=== PATIENT | female | born 1995 | race Caucasian/White ===

== ENCOUNTER 2021-11-19 11:56 | Emergency (ER) | payer MEDICAID ==
[~2021-11-19] VITALS: Ht 162.6 cm; Wt 81.0 kg
[2021-11-19 12:09] VITALS: BP 98/71
[2021-11-19] MEDS ORDERED: ALBUTEROL (0.083%) 2.5MG/3ML NEB HHN STA (13:46)
[2021-11-19] MEDS ORDERED: ACETAMINOPHEN 325MG TABLET PO PRN (14:00)
[2021-11-19 14:07] LABS: CLARITY URINE CLOUDY (CLEAR); COLOR URINE YELLOW (YELLOW); KETONES URINE TRACE (NEGATIVE); LEUKOCYTE ESTERASE URINE TRACE (NEGATIVE); NITRITE URINE NEGATIVE (NEGATIVE); OCCULT BLOOD URINE 1+ (NEGATIVE); PH URINE 6.5 (4.5-8.0); PROTEIN URINE TRACE (NEGATIVE); SPECIFIC GRAVITY URINE 1.031 (1.005-1.030)
[2021-11-19 14:12] LABS: BASOPHILS % 0.7 % (0.0-2.0); EOSINOPHILS % 7.4 % (0.0-5.0); HEMATOCRIT. 40.2 % (36.0-48.0); HEMOGLOBIN. 13.9 g/dL (12.0-16.0); LYMPHOCYTES % 24.3 % (20.0-50.0); MEAN CORPUSCULAR HEMOGLOBIN 29.5 pg (28.0-32.0); MEAN CORPUSCULAR VOLUME 85.8 fL (81.0-99.0); MEAN PLATELET VOLUME 7.1 fl (7.4-10.4); MONOCYTES % 8.1 % (2.0-8.0); NEUTROPHILS % 59.5 % (40.0-76.0); PLATELET 321 x1000/uL (130-400); RED BLOOD CELL COUNT 4.69 mill/uL (4.2-5.4); RED CELL DISTRIBUTION WIDTH 13.7 % (11.6-14.6)
[2021-11-19 14:14] LABS: CHLORIDE 104 mEq/L (98-107)
[2021-11-19 14:37] LABS: B-HCG QUANTITATIVE 72623 mIU/mL (<3)
[2021-11-19] MEDS ORDERED: NITR-87 MT (15:39)
[2021-11-19] MEDS ORDERED: TOPUD MT (15:39)
[2021-11-19] MEDS ORDERED: ALBU6.7H9 INH (15:41)
== END 2021-11-19 16:34 | disposition home or self-care (01) ==
LOC: ER 11:56
DX: O26.891 Other specified pregnancy related conditions, first trimester (principal); Z3A.08 8 weeks gestation of pregnancy; O23.31 Infections of other parts of urinary tract in pregnancy, first trimester; J45.901 Unspecified asthma with (acute) exacerbation; Z88.0 Allergy status to penicillin
CPT/HCPCS: 36415; 76801; 76817; 80053; 81003; 81025; 84702; 85025; 93005; 94640; 99285; Z7610

== ENCOUNTER 2021-12-16 05:48 | Emergency (ER) | payer MEDICAID ==
[~2021-12-16] VITALS: Ht 162.6 cm; Wt 75.1 kg
[~2021-12-16 05:48] MED LIST: ALBU6.7H3 INH; NITR-87 MT; TOPUD MT
[2021-12-16 06:23] VITALS: BP 95/66
[2021-12-16] MEDS ORDERED: ALBUTEROL (0.083%) 2.5MG/3ML NEB HHN STA ×2 (06:47→08:00)
[2021-12-16] MEDS ORDERED: IPRATROPIUM BROMIDE (0.02%) 0.5MG/2.5ML NEB HHN STA ×2 (06:47→08:00)
[2021-12-16] MEDS ORDERED: PREDNISONE 20MG TABLET PO STA (08:00)
[2021-12-16] MEDS ORDERED: ACETAMINOPHEN 325MG TABLET PO ONE (08:15)
[2021-12-16] MEDS ORDERED: ALBU2.5V13 NEB (09:10)
[2021-12-16] MEDS ORDERED: P20 MT (09:10)
== END 2021-12-16 09:42 | disposition home or self-care (01) ==
LOC: ER 05:48
DX: O99.511 Diseases of the respiratory system complicating pregnancy, first trimester (principal); J45.901 Unspecified asthma with (acute) exacerbation; Z3A.13 13 weeks gestation of pregnancy
CPT/HCPCS: 81025; 94640; 99283; J7512; Z7610

== ENCOUNTER 2021-12-18 12:56 | Emergency (ER) | payer MEDICAID ==
[~2021-12-18] VITALS: Ht 167.6 cm; Wt 75.0 kg
[~2021-12-18 12:56] MED LIST changes: +ALBU2.5V13 NEB; +P20 MT
[2021-12-18 13:00] VITALS: BP 126/81
== END 2021-12-18 18:01 | disposition left against medical advice (07) ==
LOC: ER 12:56
DX: Z53.21 Procedure and treatment not carried out due to patient leaving prior to being seen by health care provider (principal); O26.891 Other specified pregnancy related conditions, first trimester; R07.9 Chest pain, unspecified; R00.0 Tachycardia, unspecified; Z3A.13 13 weeks gestation of pregnancy
CPT/HCPCS: 93005

== ENCOUNTER 2022-04-22 16:45 | Observation (INO) | payer MEDICAID ==
[~2022-04-22] VITALS: Ht 162.6 cm; Wt 72.6 kg
[2022-04-22] MEDS ORDERED: PNV1TABL50 MT (20:22)
[2022-04-22] MEDS ORDERED: FERR325T6 MT (20:22)
== END 2022-04-22 20:55 | disposition home or self-care (01) ==
LOC: 8 EST LDRP 16:45
PROVIDERS: ADMIT Obstetrics & Gynecology; ATTEND Obstetrics & Gynecology
DX: O26.893 Other specified pregnancy related conditions, third trimester (principal); R10.9 Unspecified abdominal pain; O62.9 Abnormality of forces of labor, unspecified; Z3A.31 31 weeks gestation of pregnancy
CPT/HCPCS: 59025; 76805; 76818; G0378; 99281; G0379

== ENCOUNTER 2022-05-02 11:45 | Observation (INO) | payer MEDICAID ==
[~2022-05-02] VITALS: Ht 162.6 cm; Wt 75.7 kg
[~2022-05-02 11:45] MED LIST changes: +FERR325T6 MT; +PNV1TABL50 MT
[2022-05-02 13:29] LABS: CLARITY URINE CLOUDY (CLEAR); COLOR URINE YELLOW (YELLOW); KETONES URINE NEGATIVE (NEGATIVE); LEUKOCYTE ESTERASE URINE 2+ (NEGATIVE); NITRITE URINE NEGATIVE (NEGATIVE); OCCULT BLOOD URINE TRACE (NEGATIVE); PH URINE 6.5 (4.5-8.0); PROTEIN URINE NEGATIVE (NEGATIVE); SPECIFIC GRAVITY URINE 1.018 (1.005-1.030)
== END 2022-05-02 14:45 | disposition home or self-care (01) ==
LOC: 8 EST A/PP 11:45
PROVIDERS: ADMIT Obstetrics & Gynecology; ATTEND Obstetrics & Gynecology
DX: O26.893 Other specified pregnancy related conditions, third trimester (principal); R10.9 Unspecified abdominal pain; O62.9 Abnormality of forces of labor, unspecified; Z3A.32 32 weeks gestation of pregnancy; V89.2XXA Person injured in unspecified motor-vehicle accident, traffic, initial encounter; Y93.89 Activity, other specified; Y92.89 Other specified places as the place of occurrence of the external cause; Y99.8 Other external cause status
CPT/HCPCS: 59025; 81003; G0378; 99281; G0379

== ENCOUNTER 2022-06-05 06:01 | Observation (INO) | payer MEDICAID ==
[~2022-06-05] VITALS: Ht 160 cm; Wt 76.2 kg
[2022-06-05] MEDS ORDERED: PREN-176 PO (06:47)
[2022-06-05] MEDS ORDERED: ALBU90AE2 (06:47)
[2022-06-05] MEDS ORDERED: LACTATED RINGERS 1,000 ML IV NR (07:30)
[2022-06-05 07:38] LABS: CLARITY URINE CLEAR (CLEAR); COLOR URINE YELLOW (YELLOW); KETONES URINE TRACE (NEGATIVE); LEUKOCYTE ESTERASE URINE 2+ (NEGATIVE); NITRITE URINE NEGATIVE (NEGATIVE); OCCULT BLOOD URINE NEGATIVE (NEGATIVE); PROTEIN URINE TRACE (NEGATIVE)
[2022-06-05] MEDS ORDERED: LACTATED RINGERS 1,000 ML IV SCH (08:00)
== END 2022-06-05 09:00 | disposition home or self-care (01) ==
LOC: 8 EST LDRP 06:01
PROVIDERS: ADMIT Obstetrics & Gynecology; ATTEND Obstetrics & Gynecology
DX: O62.9 Abnormality of forces of labor, unspecified (principal); O99.891 Other specified diseases and conditions complicating pregnancy; M54.9 Dorsalgia, unspecified; O26.893 Other specified pregnancy related conditions, third trimester; R10.9 Unspecified abdominal pain; Z3A.37 37 weeks gestation of pregnancy
CPT/HCPCS: 59025; 76805; 76818; 81003; 96360; 99281; G0378

== ENCOUNTER 2022-06-13 11:47 | Observation (INO) | payer MEDICAID ==
[~2022-06-13] VITALS: Ht 157.5 cm; Wt 75.7 kg
== END 2022-06-13 15:28 | disposition home or self-care (01) ==
LOC: 8 EST LDRP 11:47
PROVIDERS: ADMIT Obstetrics & Gynecology; ATTEND Obstetrics & Gynecology
DX: O26.893 Other specified pregnancy related conditions, third trimester (principal); M25.562 Pain in left knee; Z3A.38 38 weeks gestation of pregnancy
CPT/HCPCS: 59025; 93971; G0378; 99281; G0379

== ENCOUNTER 2022-06-17 12:04 | Observation (INO) | payer MEDICAID | END 2022-06-17 14:10 | disposition home or self-care (01) | LOC: 8 EST LDRP 12:04 | PROVIDERS: ADMIT Obstetrics & Gynecology; ATTEND Obstetrics & Gynecology | DX: O99.891 Other specified diseases and conditions complicating pregnancy (principal); M54.9 Dorsalgia, unspecified; R10.30 Lower abdominal pain, unspecified; O62.9 Abnormality of forces of labor, unspecified; Z3A.38 38 weeks gestation of pregnancy | CPT/HCPCS: 59025; G0378; G0379 ==

== ENCOUNTER 2022-06-20 00:02 | Inpatient (IN) | payer MEDICAID ==
[~2022-06-20] VITALS: Ht 162.6 cm; Wt 84.8 kg
[2022-06-20] MEDS ORDERED: PNV1TABL76 PO (00:49)
[2022-06-20] MEDS ORDERED: ALBU6.7H3 INH (00:49)
[2022-06-20] MEDS ORDERED: METHYLERGONOVINE MALEATE 0.2 MG/ML IM PRN ×2 (02:30→03:15)
[2022-06-20] MEDS ORDERED: CARBOPROST TROMETHAMINE 250 MCG/ML AMPUL IM PRN ×2 (02:30→03:15)
[2022-06-20] MEDS ORDERED: MISOPROSTOL 100MCG TABLET VG SCH ×2 (02:30→03:15)
[2022-06-20] MEDS ORDERED: NALOXONE HCL 0.4 MG/ML 1ML VIAL IM PRN ×2 (02:30→03:15)
[2022-06-20] MEDS ORDERED: LIDOCAINE HCL 1% 20ML VIAL (Pyxis) INJ INFIL SCH ×2 (02:30→03:15)
[2022-06-20] MEDS ORDERED: BUTORPHANOL TARTRATE 2 MG/ML VIAL IV PRN ×2 (02:30→03:15)
[2022-06-20] MEDS ORDERED: OXYTOCIN 30 UNITS/500ML NS PMX 500 ML IV SCH (02:30)
[2022-06-20] MEDS ORDERED: MISOPROSTOL 100MCG TABLET VG PRN ×2 (02:30→03:15)
[2022-06-20 02:52] LABS: BASOPHILS % 0.4 % (0.0-2.0); EOSINOPHILS % 2.1 % (0.0-5.0); HEMATOCRIT. 31.7 % (36.0-48.0); HEMOGLOBIN. 10.3 g/dL (12.0-16.0); LYMPHOCYTES % 26.2 % (20.0-50.0); MEAN PLATELET VOLUME 7.3 fl (7.4-10.4); MONOCYTES % 7.6 % (2.0-8.0); NEUTROPHILS % 63.7 % (40.0-76.0); PLATELET 371 x1000/uL (130-400); RED BLOOD CELL COUNT 4.28 mill/uL (4.2-5.4); RED CELL DISTRIBUTION WIDTH 15.7 % (11.6-14.6)
[2022-06-20 02:53] LABS: CLARITY URINE CLOUDY (CLEAR); COLOR URINE YELLOW (YELLOW); KETONES URINE 3+ (NEGATIVE); LEUKOCYTE ESTERASE URINE 1+ (NEGATIVE); NITRITE URINE NEGATIVE (NEGATIVE); OCCULT BLOOD URINE NEGATIVE (NEGATIVE); PH URINE 6.5 (4.5-8.0); PROTEIN URINE TRACE (NEGATIVE); SPECIFIC GRAVITY URINE 1.027 (1.005-1.030)
[2022-06-20 03:06] LABS: INR 0.9; PARTIAL THROMBOPLASTIN TIME 24.3 sec (23.4-31.0); PROTHROMBIN TIME 10.1 sec (9.6-11.0)
[2022-06-20] MEDS: LACTATED RINGERS 1,000 ML IV SCH ×4 (03:08→21:54)
[2022-06-20 03:45] LABS: *AMPHETAMINES SCREEN URINE NEGATIVE (NEGATIVE); *BARBITURATES SCREEN URINE NEGATIVE (NEGATIVE); *BENZODIAZEPINES SCREEN URINE NEGATIVE (NEGATIVE); *COCAINE SCREEN URINE NEGATIVE (NEGATIVE); CANNABINOID URINE SCREEN NEGATIVE (NEGATIVE); METHADONE URINE SCREEN NEGATIVE (NEGATIVE); OPIATES URINE SCREEN NEGATIVE (NEGATIVE); PHENCYCLIDINE URINE SCREEN NEGATIVE (NEGATIVE)
[2022-06-20 07:13] LABS: HEPATITIS B SURFACE ANTIGEN NEGATIVE
[2022-06-20] MEDS ORDERED: ROPIVACAINE HCL/PF EPIDURAL 200 ML EPI SCH (14:30)
[2022-06-20] MEDS: OXYTOCIN 30 UNITS/500ML NS PMX 500 ML IV SCH (15:54)
[2022-06-20] MEDS: ALBUTEROL (0.083%) 2.5MG/3ML NEB HHN SCH (21:00)
[2022-06-20] MEDS ORDERED: ALBUTEROL (0.083%) 2.5MG/3ML NEB ONE (21:01)
[2022-06-20] MEDS ORDERED: ALBUTEROL 6.7GM HFA INHALER ORI PRN (22:15)
[2022-06-20] MEDS ORDERED: ACETAMINOPHEN 500MG TABLET PO SCH (22:30)
[2022-06-21] MEDS ORDERED: IBUPROFEN 400MG TABLET PO PRN (00:45)
[2022-06-21] MEDS: IBUPROFEN 800MG TABLET PO PRN ×3 (01:08→16:12)
[2022-06-21] MEDS: OXYTOCIN 30 UNITS/500ML NS PMX 500 ML IV SCH (01:08)
[2022-06-21 02:25] VITALS: BP 95/60
[2022-06-21 04:00] VITALS: BP 98/62
[2022-06-21] MEDS: PRENATAL VIT/FE FUMARATE/FA TABLET PO SCH (08:26)
[2022-06-21 08:30] VITALS: BP 99/61
[2022-06-21 16:00] VITALS: BP 103/65
[2022-06-21 20:00] VITALS: BP 94/64
[2022-06-21] MEDS ORDERED: CLINDAMYCIN IN 0.9 % SOD CHLOR 50 ML IV ONE (21:31)
[2022-06-22 04:00] VITALS: BP 98/55
[2022-06-22] MEDS: LACTATED RINGERS 1,000 ML IV SCH ×2 (05:37→12:03)
[2022-06-22] MEDS ORDERED: FENTANYL CITRATE/PF 50MCG/ML 2ML VIAL ONE ×2 (06:42→09:30)
[2022-06-22 07:30] VITALS: BP 101/67
[2022-06-22] MEDS ORDERED: FERROUS SULFATE 325MG TABLET PO SCH (07:30)
[2022-06-22 08:26] LABS: BASOPHILS % 0.5 % (0.0-2.0); EOSINOPHILS % 2.3 % (0.0-5.0); HEMATOCRIT. 28.1 % (36.0-48.0); HEMOGLOBIN. 9.1 g/dL (12.0-16.0); LYMPHOCYTES % 30.5 % (20.0-50.0); MEAN CORPUSCULAR HEMOGLOBIN 23.8 pg (28.0-32.0); MEAN CORPUSCULAR VOLUME 73.8 fL (81.0-99.0); MEAN PLATELET VOLUME 7.2 fl (7.4-10.4); NEUTROPHILS % 60.7 % (40.0-76.0); PLATELET 329 x1000/uL (130-400); RED BLOOD CELL COUNT 3.81 mill/uL (4.2-5.4); RED CELL DISTRIBUTION WIDTH 15.5 % (11.6-14.6)
[2022-06-22] MEDS ORDERED: DEXAMETHASONE 4MG/ML 1ML VIAL ONE (09:38)
[2022-06-22] MEDS ORDERED: ONDANSETRON HCL 4MG/2ML INJ ONE (09:38)
[2022-06-22] MEDS ORDERED: PROPOFOL 200MG/20ML VIAL IV ONE (09:39)
[2022-06-22] MEDS ORDERED: MIDAZOLAM HCL 2 MG/2 ML VIAL ONE (09:46)
[2022-06-22] MEDS ORDERED: BUPIVACAINE HCL/PF 0.25% (2.5MG/ML) 10ML ONE ×2 (09:59→10:01)
[2022-06-22] MEDS ORDERED: FENTANYL CITRATE/PF 50MCG/ML 2ML VIAL IV PRN (10:15)
[2022-06-22] MEDS: ALBUTEROL (0.083%) 2.5MG/3ML NEB HHN SCH (11:52)
[2022-06-22] MEDS: PRENATAL VIT/FE FUMARATE/FA TABLET PO SCH (13:08)
[2022-06-22] MEDS: IBUPROFEN 800MG TABLET PO PRN (13:08)
== END 2022-06-22 17:00 | disposition home or self-care (01) | DRG 541 ==
LOC: OBSVTOIN 00:02 → 8 EST LDRP 00:02 → 8EST 06-21 02:15
PROVIDERS: ADMIT Obstetrics & Gynecology; ATTEND Obstetrics & Gynecology
PROC: 10E0XZZ Delivery of Products of Conception, External Approach (ICD-10-PCS; principal; 2022-06-21)
PROC: 3E0R3BZ Introduction of Anesthetic Agent into Spinal Canal, Percutaneous Approach (ICD-10-PCS; 2022-06-21)
PROC: 00HU33Z Insertion of Infusion Device into Spinal Canal, Percutaneous Approach (ICD-10-PCS; 2022-06-21)
PROC: 0UB70ZZ Excision of Bilateral Fallopian Tubes, Open Approach (ICD-10-PCS; 2022-06-22)
DX: O13.4 Gestational [pregnancy-induced] hypertension without significant proteinuria, complicating childbirth (principal); Z37.0 Single live birth; J45.909 Unspecified asthma, uncomplicated; Z20.822 Contact with and (suspected) exposure to COVID-19; Z30.2 Encounter for sterilization; Z3A.39 39 weeks gestation of pregnancy; Z83.3 Family history of diabetes mellitus; Z88.0 Allergy status to penicillin; Z64.1 Problems related to multiparity
CPT/HCPCS: 36415; 80305; 81003; 85025; 86592; 86703; 86762; 86850; 86900; 87340; 87426; 88302; 93005; 94640; 94664; G0378; J1100; J2250; J2405; J2704; J2795; J3010; J3490; J7120; J2590

== ENCOUNTER 2022-07-21 22:09 | Emergency (ER) | payer MEDICAID ==
[~2022-07-21] VITALS: Ht 167.6 cm; Wt 59.0 kg
[~2022-07-21 22:09] MED LIST changes: -ALBU2.5V13 NEB; -FERR325T6 MT; -NITR-87 MT; -P20 MT; -PNV1TABL50 MT; +PNV1TABL76 PO; -TOPUD MT
[2022-07-21 22:45] LABS: BASOPHILS % 0.8 % (0.0-2.0); HEMATOCRIT. 38.9 % (36.0-48.0); HEMOGLOBIN. 12.7 g/dL (12.0-16.0); LYMPHOCYTES % 26.8 % (20.0-50.0); MEAN CORPUSCULAR HEMOGLOBIN 23.9 pg (28.0-32.0); MEAN CORPUSCULAR VOLUME 73.3 fL (81.0-99.0); MEAN PLATELET VOLUME 7.6 fl (7.4-10.4); MONOCYTES % 7.6 % (2.0-8.0); NEUTROPHILS % 61.8 % (40.0-76.0); PLATELET 249 x1000/uL (130-400); RED BLOOD CELL COUNT 5.31 mill/uL (4.2-5.4); RED CELL DISTRIBUTION WIDTH 19.5 % (11.6-14.6)
[2022-07-21 22:53] LABS: CHLORIDE 112 mEq/L (98-107)
[2022-07-22 00:47] LABS: CLARITY URINE CLOUDY (CLEAR); COLOR URINE YELLOW (YELLOW); KETONES URINE TRACE (NEGATIVE); LEUKOCYTE ESTERASE URINE NEGATIVE (NEGATIVE); NITRITE URINE NEGATIVE (NEGATIVE); OCCULT BLOOD URINE 2+ (NEGATIVE); PROTEIN URINE TRACE (NEGATIVE); SPECIFIC GRAVITY URINE 1.025 (1.005-1.030); UROBILINOGEN URINE 0.2 E.U./dL (0.2-1.0)
[2022-07-22 02:21] VITALS: BP 107/70
[2022-07-22] MEDS ORDERED: ACETAMINOPHEN 500MG TABLET PO ONE (02:30)
[2022-07-22] MEDS ORDERED: ACET-2708 MT (05:51)
[2022-07-22] MEDS ORDERED: NITR-87 MT (05:51)
== END 2022-07-22 07:11 | disposition home or self-care (01) ==
LOC: ER 22:09
DX: R10.30 Lower abdominal pain, unspecified (principal); R82.71 Bacteriuria; R19.7 Diarrhea, unspecified; J45.909 Unspecified asthma, uncomplicated; Z88.0 Allergy status to penicillin; Z90.89 Acquired absence of other organs; Z79.899 Other long term (current) drug therapy
CPT/HCPCS: 36415; 74176; 80053; 81003; 81025; 85025; 93005; 99284